=== PATIENT | female | born 1940 | race Caucasian/White ===

== ENCOUNTER 2016-08-20 22:10 | Emergency (ER) | payer MEDICARE, OTHER ==
[2016-08-20] MEDS ORDERED: ASPIRIN (CHEWABLE) 81 MG TAB PO ONE (22:26)
[2016-08-20] MEDS ORDERED: NITROGLYCERIN/D5W IV 250 ML IVS ONE (22:35)
[2016-08-20] MEDS ORDERED: ATORVASTATIN 20 MG TAB PO ONE (22:38)
--- NOTE | 2016-08-20 22:38 | ED.PDOC ---
History of Present Illness - General Chief Complaint: Chest Pain/NE Stated Complaint: chest pain Time Seen by Provider: 08/20/16 22:26 Source: patient Exam Limitations: no limitations - History of Present Illness Initial Comments: Patient is a 76 yo F s/p NE with stent x one, DM, and HTN who presents with chest pain for one hour. Pain is mid-sternal, radiates to the neck, constant but intermittent in intensity, worse with movement, better with rest, no associated symptoms, got better after nitro SL x three, feels like her previous NE. No other complaints. Timing/Duration: 1 hour Severity: moderate Improving Factors: other - nitro SL Worsening Factors: movement Associated Symptoms: chest pain Allergies/Adverse Reactions: Allergies Metoprolol [From Toprol XL] Adverse Reaction (Verified 08/20/16 22:45) Review of Systems - Review of Systems Constitutional: States: no symptoms reported EENTM: States: no symptoms reported Respiratory: States: no symptoms reported Cardiology: States: see HPI Gastrointestinal/Abdominal: States: no symptoms reported Genitourinary: States: no symptoms reported Musculoskeletal: States: no symptoms reported Skin: States: no symptoms reported Neurological: States: no symptoms reported Endocrine: States: no symptoms reported Hematologic/Lymphatic: States: no symptoms reported Physical Exam - Physical Exam General Appearance: Alert Eye Exam: bilateral normal Ears, Nose, Throat: normal ENT inspection Neck: non-tender, full range of motion, supple Respiratory: wheezing - wheezing in bilateral upper lobes, no rales/rhonchi Cardiovascular/Chest: regular rate, rhythm Gastrointestinal/Abdominal: normal bowel sounds, non tender, soft Extremity: no pedal edema Neurologic: normal mood/affect Progress - Progress Progress: 08/20/16 23:33 EKG read by me showed downsloping ST segments in leads III, aVF, II, and V5. T wave inversions in leads V1, V3. Right bundle branch block. None of these were on the previous from 2011. Clinically this appears to be true ACS. patient was given ASA 324 mg po x one and started on a nitrodrip. Pain improved to a 1/10 on the drip. Atorvastatin 80 mg po x one. Troponin 0.10 CK 200. Heparin 6000 IU IV bolus followed by 1000 units per hour. Patient transferred to [facility] by helicopter for further cardiology intervention. 08/20/16 23:38 Departure - Departure Clinical Impression: Acute coronary syndrome Disposition: Transfer to Hospital Condition: Fair Departure Forms: ED Discharge - Pt. Copy, Patient Portal Self Enrollment Diet: other - NPO Activity: other - as per hospitalist
[2016-08-20] MEDS ORDERED: HEPARIN SODIUM (PORCINE) 5,000 U/ML VIAL IV ONE (22:49)
[2016-08-20] MEDS ORDERED: HEPARIN PREMIX 500 ML IV SCH ×2 (23:00→23:12)
[2016-08-20] MEDS ORDERED: HEPARIN PREMIX 500 ML IV ONE (23:17)
[2016-08-20 23:31] VITALS: TEMP 97
--- NOTE | 2016-08-20 23:36 | RAD ---
EXAM DESCRIPTION: XR CHEST 1 VIEW CLINICAL HISTORY: 76-year-old female with chest pain. COMPARISON: None. TECHNIQUE: Single AP view of the chest was obtained portably. FINDINGS: The cardiac mediastinal silhouette is within normal limits. Heart size is normal. Atherosclerotic thoracic aorta. Opacification of the right lung apex may be secondary to vascular calcification or pleural thickening, scarring. The lungs are clear without discrete focal opacity, pleural effusion or pneumothorax. The osseous structures reveal degenerative change. Thoracolumbar dextroscoliosis and severe degenerative change. IMPRESSION: No acute cardiopulmonary abnormalities. Electronically signed by: Kerry Winchester MD 08/20/2016 23:35
[2016-08-21 00:16] VITALS: BP 178/87; O2SAT 95
== END 2016-08-21 | disposition short-term general hospital (02) ==
LOC: ER 22:10
DX: I24.9 Acute ischemic heart disease, unspecified (principal); I10 Essential (primary) hypertension; E11.9 Type 2 diabetes mellitus without complications; I25.2 Old myocardial infarction; Z98.61 Coronary angioplasty status; Z88.8 Allergy status to other drugs, medicaments and biological substances; I45.10 Unspecified right bundle-branch block
CPT/HCPCS: 36415; 71010; 80053; 82550; 82553; 83880; 84484; 85025; 85610; 85730; 93005; J1644

== ENCOUNTER → 2017-03-29 | Outpatient (CLI) | payer MEDICARE, OTHER | END | disposition home or self-care (01) | LOC: GMAJ 14:31 | PROVIDERS: ATTEND Family Medicine | DX: E78.00 Pure hypercholesterolemia, unspecified (principal); E11.9 Type 2 diabetes mellitus without complications; I10 Essential (primary) hypertension ==

== ENCOUNTER → 2018-02-20 | Outpatient (CLI) | payer MEDICARE ==
--- NOTE | 2018-02-20 13:46 | CT ---
EXAM DESCRIPTION: CT ABDOMEN WITH CONTRAST CLINICAL HISTORY: ABDOMEN PAIN COMPARISON: None Available. TECHNIQUE: CT of the abdomen is performed during IV bolus administration of routine adult dose of nonionic iodinated contrast. No oral contrast. FINDINGS: The lung bases are clear of infiltrate. Small granulomas are seen in the lung bases. Lateral basal segment right lower lobe nodule measures 5 mm. Tiny nodule left lower lobe is 5 mm. On the coronal images, additional nodules are seen in the left lower lobe suggesting a cluster of granulomas, the largest of which is 5 mm. Heart size is normal. Coronary arterial calcification is extensive. Tiny lesions in the right and left lobes of the liver are most likely small cysts. Slight prominence of the intrahepatic bile ducts. No dilatation of the common hepatic or common bile duct. Pancreatic duct is normal. No focal pancreatic lesion. Small cyst in the medial right kidney measures 1.6 cm. Tiny cyst in the anterosuperior left kidney 3 mm. Calcified aorta appears narrowed with no aneurysm. Extensive diverticulosis of the descending and sigmoid colon. Question partial visualization of the appendix. Spleen, pancreas, and kidneys are otherwise unremarkable. There is no lymphadenopathy, inflammation, or free fluid observed. Delayed images show normal contrast accumulation within the urinary collecting systems. Coronal and sagittal reformatted images confirm the findings. Severe degenerative disc disease is seen in the thoracolumbar spine with dextroscoliosis. IMPRESSION: No acute abdominal process. Severe degenerative disc disease at the thoracolumbar spine with dextroscoliosis. Small nodules in the lung bases in the 3 to 5 mm size range. Follow-up as per recommendations below. 2017 Fleischner Society Recommendations for Multiple Solid Lung Nodules Follow-Up base on size (average of long- and short-axis diameters). Use most suspicious nodule for followup. Nodule Size <6 mm Low-Risk Patient: No routine follow-up Nodule Size <6 mm High-Risk Patient: Optional CT at 12 months This exam was performed according to our departmental dose-optimization program, which includes automated exposure control, adjustment of the mA and/or kV according to patient size and/or use of iterative reconstruction technique. Total DLP equals 473.62 mGycm. Electronically signed by: Jonathan Emery MD 02/20/2018 1:44 PM CDT
== END ==
LOC: CT 10:48
PROVIDERS: ATTEND Family Medicine
DX: R10.9 Unspecified abdominal pain (principal); M51.35 Other intervertebral disc degeneration, thoracolumbar region; R91.8 Other nonspecific abnormal finding of lung field

== ENCOUNTER → 2018-06-18 | Outpatient (CLI) | payer MEDICARE | LOC: GMAJ 16:48 | PROVIDERS: ATTEND Family Medicine | DX: D64.9 Anemia, unspecified (principal); E53.8 Deficiency of other specified B group vitamins ==